=== PATIENT | female | born 1975 | race Two or more races ===

== ENCOUNTER 2024-05-05 11:57 | Emergency (ER) | payer BC ==
[~2024-05-05] VITALS: Ht 165.1 cm; Wt 75.0 kg
[2024-05-05 12:00] VITALS: O2SAT 99
[2024-05-05] MEDS ORDERED: AZITHROMYCIN 500MG/250ML 250 ML IV ONE (13:00)
[2024-05-05 13:30] LABS: CHLORIDE 105 mEq/L (98-107); POTASSIUM 3.5 mEq/L (3.5-5.1); SODIUM 138 mEq/L (136-145)
[2024-05-05 13:31] LABS: CARBON DIOXIDE 26 mEq/L (21-32)
[2024-05-05 13:36] LABS: CREATININE 0.7 mg/dL (0.6-1.0); GLUCOSE 157 mg/dL (70-105)
[2024-05-05 13:39] LABS: DIFFERENTIAL COMMENT 1; HEMATOCRIT. 38.5 % (36.0-48.0); HEMOGLOBIN. 12.6 g/dL (12.0-16.0); MEAN CORPUSCULAR HEMOGLOBIN 25.2 pg (28.0-32.0); MEAN CORPUSCULAR HGB CONC 32.7 g/dL (31.0-37.0); MEAN CORPUSCULAR VOLUME 77.1 fL (81.0-99.0); MEAN PLATELET VOLUME 8.1 fl (7.4-10.4); PLATELET 404 x1000/uL (130-400); RED BLOOD CELL COUNT 4.99 mill/uL (4.2-5.4); RED CELL DISTRIBUTION WIDTH 14.4 % (11.6-14.6); WHITE BLOOD COUNT 8.6 x1000/uL (4.5-11.0)
[2024-05-05 13:41] LABS: INR 1.2; PROTHROMBIN TIME 12.7 sec (9.6-11.0)
[2024-05-05] MEDS: CEFTRIAXONE 1GM/50ML 50 ML IV ONE (13:43)
[2024-05-05] MEDS: SODIUM CHLORIDE 0.9% (SEPSIS BOLUS) IV ONE (13:44)
[2024-05-05 13:53] LABS: TROPONIN I HIGH SENSITIVITY < 4 ng/L (3.0-34); UREA NITROGEN BLOOD < 5 mg/dL (9-23)
[2024-05-05 13:54] LABS: ETHANOL BLOOD < 10 mg/dL (<10)
[2024-05-05] MEDS: SODIUM CHLORIDE 0.9% 1,000 ML IV SCH (14:18)
[2024-05-05] MEDS: METHYLPREDNISOLONE SOD SUCC 125MG/2ML (ACT-O-VIAL) IV ONE (14:27)
[2024-05-05] MEDS: DIPHENHYDRAMINE 50MG/ML VIAL IV ONE (14:27)
[2024-05-05] MEDS: AZITHROMYCIN 500MG/250ML 250 ML IV NR (14:42)
[2024-05-05] MEDS: FAMOTIDINE 20MG/2ML VIAL IV ONE (14:42)
[2024-05-05 15:30] VITALS: BP 113/67; PULSE 2; RESP 18; TEMP 36.94740; O2SAT 99
[2024-05-05 17:24] LABS: MICROCYTOSIS 1+; PLATELET ESTIMATE SLIGHTLY INCREASED
== END 2024-05-05 15:52 | disposition home or self-care (01) ==
LOC: ER 11:57
DX: N61.0 Mastitis without abscess (principal); R53.1 Weakness; T50.905A Adverse effect of unspecified drugs, medicaments and biological substances, initial encounter; Z90.11 Acquired absence of right breast and nipple; X58.XXXA Exposure to other specified factors, initial encounter
CPT/HCPCS: 80048; 80320; 83605; 85025; 85610; 87040; 84484; 36415; 84145; 71045; 93005; 96367; 96365; 96375; 99291; J0456; J0696; J1200; J3490; J2919; J7030; Z7610; G0480